=== PATIENT | female | born 1950 | race Caucasian/White ===

== ENCOUNTER 2021-11-12 13:51 | Outpatient (CLI) | payer MEDICARE, BC | END 2021-11-12 13:52 | disposition home or self-care (01) | LOC: CSHMAMMO 13:51 | PROVIDERS: ATTEND Family Medicine | DX: Z12.31 Encounter for screening mammogram for malignant neoplasm of breast (principal); N63.20 Unspecified lump in the left breast, unspecified quadrant; Z80.3 Family history of malignant neoplasm of breast | CPT/HCPCS: 77063; 77067 ==

== ENCOUNTER 2021-11-13 12:42 | Outpatient (CLI) | payer MEDICARE, BC | END 2021-11-13 12:43 | disposition home or self-care (01) | LOC: CSHMAMMO 12:42 | PROVIDERS: ATTEND Family Medicine | DX: N63.22 Unspecified lump in the left breast, upper inner quadrant (principal) | CPT/HCPCS: 76642; 77065; G0279 ==

== ENCOUNTER → 2021-11-14 | Day surgery (SDC) | payer MEDICARE, BC | LOC: CSHULT 09:59 | PROVIDERS: ATTEND Family Medicine | PROC: 0H9U3ZX Drainage of Left Breast, Percutaneous Approach, Diagnostic (ICD-10-PCS; principal; 2021-11-14) | DX: C50.812 Malignant neoplasm of overlapping sites of left female breast (principal) | CPT/HCPCS: 19083; 88305; 88341; 88342 ==

== ENCOUNTER → 2021-11-23 | Day surgery (SDC) | payer MEDICARE, BC ==
[2021-11-21 15:11] VITALS: BMI 20.2
[~2021-11-23] MED LIST: Acetaminophen 325 MG TAB PO PRN; Bupivacaine PF 0.5% 30 ML VIAL FS ONE; EPINEPHrine 1 MG/ML AMP IVP ONE; HYDROcodone/Acetaminophen 5/325 mg Tablet PO PRN; Isosulfan Blue 50 MG/5 ML VIAL SC ONE; Lidocaine 1% PF 5 ML VIAL FS ONE; Meperidine HCl/PF 25 MG/ML VIAL SLOW IVP ONE
== END | disposition home or self-care (01) ==
LOC: CSHMAMMO 07:15
PROVIDERS: ATTEND Surgery
DX: C50.912 Malignant neoplasm of unspecified site of left female breast (principal); Z17.0 Estrogen receptor positive status [ER+]; Z88.2 Allergy status to sulfonamides; Z88.6 Allergy status to analgesic agent; Z91.041 Radiographic dye allergy status; Z79.899 Other long term (current) drug therapy
CPT/HCPCS: 19125; 19281; 38525; 76098; 78195; A9541; Q9968; 88305; 88307; 88341; 88342; J0171; J0690; J1100; J2175; J2250; J2405; J2704; J3010; S0020

== ENCOUNTER 2022-06-18 07:47 | Outpatient (CLI) | payer MEDICARE, BC | END 2022-06-18 07:48 | disposition home or self-care (01) | LOC: CSHMAMMO 07:47 | PROVIDERS: ATTEND Surgery | DX: Z08 Encounter for follow-up examination after completed treatment for malignant neoplasm (principal); Z85.3 Personal history of malignant neoplasm of breast | CPT/HCPCS: 77065; G0279 ==

== ENCOUNTER 2022-06-20 12:45 | Outpatient (CLI) | payer MEDICARE, BC | END 2022-06-20 12:46 | disposition home or self-care (01) | LOC: CSHMRI 12:45 | PROVIDERS: ATTEND Surgery | DX: C50.911 Malignant neoplasm of unspecified site of right female breast (principal) | CPT/HCPCS: 82565; C8908 ==

== ENCOUNTER 2022-11-13 09:28 | Outpatient (CLI) | payer MEDICARE, BC | END 2022-11-13 09:29 | disposition home or self-care (01) | LOC: CSHMAMMO 09:28 | PROVIDERS: ATTEND Surgery | DX: C50.812 Malignant neoplasm of overlapping sites of left female breast (principal); M85.851 Other specified disorders of bone density and structure, right thigh; M85.852 Other specified disorders of bone density and structure, left thigh; Z78.0 Asymptomatic menopausal state; Z98.890 Other specified postprocedural states | CPT/HCPCS: 77066; 77080; G0279 ==

== ENCOUNTER 2023-11-14 12:56 | Outpatient (CLI) | payer MEDICARE, BC | END 2023-11-14 12:57 | disposition home or self-care (01) | LOC: CSHMAMMO 12:56 | PROVIDERS: ATTEND Surgery | DX: Z08 Encounter for follow-up examination after completed treatment for malignant neoplasm (principal); Z85.3 Personal history of malignant neoplasm of breast | CPT/HCPCS: 77066; G0279 ==

== ENCOUNTER 2024-04-01 10:29 | Outpatient (CLI) | payer MEDICARE, BC | END 2024-04-01 10:30 | disposition home or self-care (01) | LOC: CSHMAMMO 10:29 | PROVIDERS: ATTEND Internal Medicine Hematology & Oncology | DX: M85.89 Other specified disorders of bone density and structure, multiple sites (principal); T38.6X5A Adverse effect of antigonadotrophins, antiestrogens, antiandrogens, not elsewhere classified, initial encounter | CPT/HCPCS: 77080 ==

== ENCOUNTER 2024-06-18 09:01 | Outpatient (CLI) | payer MEDICARE, BC ==
[2024-06-18] MEDS ORDERED: Iopamidol 300 61% 100 ML VIAL FS ONE (11:09)
== END 2024-06-18 09:02 | disposition home or self-care (01) ==
LOC: CSHCT 09:01
PROVIDERS: ATTEND Family Medicine
DX: R31.29 Other microscopic hematuria (principal); R10.31 Right lower quadrant pain; N32.89 Other specified disorders of bladder
CPT/HCPCS: 74178; 82565; Q9967

== ENCOUNTER 2024-11-16 09:45 | Outpatient (CLI) | payer MEDICARE, BC | END 2024-11-16 09:46 | disposition home or self-care (01) | LOC: CSHMAMMO 09:45 | PROVIDERS: ATTEND Surgery | DX: Z08 Encounter for follow-up examination after completed treatment for malignant neoplasm (principal); Z85.3 Personal history of malignant neoplasm of breast | CPT/HCPCS: 77066; G0279 ==

== ENCOUNTER 2024-11-26 14:16 | Emergency (ER) | payer MEDICARE, BC ==
[2024-11-26 17:11] LABS: #Basophils 0.04 10x3/uL (0.0-0.2); #Eosinophils 0.16 10x3/uL (0.0-0.5); #Neutrophils 3.17 10x3/uL (1.5-8.4); %Basophils 0.8 % (0.0-2.0); %Eosinophils 3.2 % (0.0-6.0); %Lymphocytes 24.2 % (18.0-47.0); %Neutrophils 63.6 % (40.0-75.0); Hematocrit 40.2 % (34.9-44.5); Hemoglobin 13.8 g/dL (12.0-15.5); Mean Corpuscular HGB CONC 34.3 g/dL (32.0-36.0); Mean Corpuscular Hemoglobin 32.4 pg (27.0-33.0); Mean Corpuscular Volume 94.4 fL (81.6-98.3); Mean Platelet Volume 10.4 fL (7.4-10.4); Platelet Count 270 10x3/uL (150-450); RBC Distribution Width 11.7 % (11.5-14.5); Red Blood Cell (RBC) Count 4.26 10x6/uL (3.90-5.03); White Blood Cell (WBC) Count 4.99 10x3/uL (3.5-10.5)
[2024-11-26 17:24] LABS: ALT (SGPT) 17 U/L (Less than 34); AST (SGOT) 21 U/L (11-34); Albumin 4.4 g/dL (3.1-4.5); Alkaline Phosphatase 49 U/L (40-110); Anion Gap 11 mmol/L (10-20); BUN (Urea Nitrogen) 16 mg/dL (9.8-20.1); Bilirubin, Total 0.6 mg/dL (0.3-1.2); Calc. Creatinine Clearance 0 mL/min (70-130); Calcium 10.2 mg/dL (7.8-10.44); Carbon Dioxide 29 mmol/L (23-31); Chloride 104 mmol/L (98-107); Estimated GFR 92; Glucose 93 mg/dL (83-110); Magnesium 2.3 mg/dL (1.6-2.6); Potassium 4.4 mmol/L (3.5-5.1); Protein, Total 7.4 g/dL (5.8-8.1); Sodium 140 mmol/L (136-145)
[2024-11-26 17:30] LABS: Troponin I Less than 0.010 ng/mL (< 0.028)
[2024-11-26 18:14] LABS: Bilirubin Neg (Negative); Blood, Urine 250 (Negative); Clarity Clear (Clear); Glucose, Urine (Dipstick) Normal (Negative); Ketone, Urine Negative (Negative); Leukocyte 25 (Negative); Nitrite Negative (Negative); Protein, Urine (Dipstick) 15 mg/dl (Neg-Trace); Urobilinogen Normal mg/dL (Less than 2)
[2024-11-26 18:36] LABS: Bacteria/HPF Rare-Few HPF (None Seen); CAUTI Indications for Culture Pelvic or flank pain; RBC/HPF 21-50 HPF (0-3); Squamous Epithelial None Seen HPF (0-3); WBC/HPF 0-3 HPF (0-3)
[2024-11-26 18:37] LABS: Urine Culture Reflex No No
== END 2024-11-26 19:02 ==
LOC: CSHERS 14:16
DX: R31.9 Hematuria, unspecified (principal); I48.91 Unspecified atrial fibrillation; I49.9 Cardiac arrhythmia, unspecified; Z79.01 Long term (current) use of anticoagulants
CPT/HCPCS: 36415; 80053; 81001; 83735; 84484; 85025; 93005; 99285